=== PATIENT | female | born 2000 | race Caucasian/White ===

== ENCOUNTER 2024-02-01 00:33 | Emergency (ER) | payer OTHER, SELFPAY ==
[2024-02-01 00:38] VITALS: BP 124/90
--- NOTE | 2024-02-01 01:50 | ED.GENMED ---
History of Present Illness
<BRIONNA Coleman - Last Filed: 02/01/24 02:11>
General
Chief Complaint: Abdominal Pain
Source: patient and family
Exam Limitations: none
Time Seen by Provider: 02/01/24 01:42
Nursing documentation reviewed up to this point in time: agreed with
History of Present Illness
History of Present Illness:
Pt is a 23 yo F with PMH of anxiety, hypothyroidism and constipation who presents with abdominal pain x 2 days. She states the pain is mostly in her epigastric region with some lower substernal and LUQ radiation. She notes she has been dealing with
episodes of constipation since November and has been taking miralax and stool softener at the recommendation of her PCP. She states she has not had a bowel movement in a couple of days and feels very bloated. She notes that she forced herself to
vomit in an attempt to get relief without success. The pain that she is experiencing now is constant, worse than it was yesterday and woke her up out of sleep tonight. She is still currently experiencing constant nausea, but has not had any episodes
of involuntary vomiting. Pt states her LMP was 2 weeks ago and was regular. She denies ARMENTA, fever, chest pain, dyspnea, diarrhea, back pain or changes in urination.
Past History
<BRIONNA Coleman - Last Filed: 02/01/24 02:11>
Past History
ED Past Medical History: Hypothyroidism
ED Past Surgical History: None
Review of Systems
<BRIONNA Coleman - Last Filed: 02/01/24 02:11>
Review of Systems
Allergies reviewed?: Yes
Constitutional: Denies fever, weight gain, weight loss, fatigue, night sweats or chills
Respiratory: Denies cough or trouble breathing
Cardiac: Denies chest pain or palpitations
ABD/GI: Reports abdominal pain (epigastric and LUQ), nausea, vomiting (pt forced herself to in an attempt for pain relief) and constipated; Denies diarrhea or bloody stools
: Denies dysuria, flank pain or urgency
Neurological: Denies dizzy or headache
Phy Exam
<BRIONNA Coleman - Last Filed: 02/01/24 02:11>
General Physical Exam
General Presentation: well appearing and no apparent distress
General age: appears stated age
General Skin: warm and dry
General Habitus: normal and obese
General Mental: alert
General Hydration: appears well hydrated
Cardiovascular Exam
Cardiovascular Exam: regular rate/rhythm and no murmur
Pulmonary Exam
Pulmonary Exam: lungs clear and no respiratory distress
Gastrointestinal Exam
Gastrointestinal Exam: soft, no pulsatile mass and abnormal bowel sounds (hypoactive)
Palpation: left upper quadrant: Moderate tenderness (LUQ and epigastric)
Auscultation of Abdomen: hypoactive
Course
<BRIONNA Coleman - Last Filed: 02/01/24 02:11>
Orders/Labs/Results
Orders:
Orders
02/01/24 01:39
IV Insert/Care/Rem.- Treatment PRN
02/01/24 01:41
Test Result ONCE
02/01/24 02:05
Complete Blood Count/With Diff Urgent
Comprehensive Metabolic Panel Urgent
HCG, Serum Qualitative Screen Urgent
Lipase Urgent
02/01/24 02:15
CR Abdomen - 1 View Urgent
Comment:
Reason For Exam: abd pain
02/01/24 02:25
Urinalysis Reflex To Culture Urgent
Date Specimen was Collected: 02/01/24
Time Specimen was Collected: 02:16
Urine Microscopic Reflex Cult Urgent
Urine Culture Urgent
NIRMAL Source: U
Specimen Description:
Date Specimen was Collected: 02/01/24
Time Specimen was Collected: 02:16
02/01/24 03:15
Magnesium Citrate [Citroma] 300 ml PO ONCE ONE
Abnormal Lab Results
02/01/24 02/01/24
02:05 02:25
WBC 11.5 H 10^3/uL
(4.8-10.8)
RBC 4.07 L 10^6/uL
(4.20-5.40)
Hct 35.2 L %
(37.0-47.0)
Absolute Neuts (auto) 8.8 H 10^3/uL
(1.4-6.5)
Neutrophils % 76.4 H %
(42.2-75.2)
Lymphocytes % 17.4 L %
(20.5-51.1)
Urine Ketones 3+ A
(Negative)
Leukocyte Esterase Rfl Trace A
(Negative)
Urine RBC 3-6 A /HPF
(0-2)
Urine Bacteria (Reflex) Moderate A
(Negative)
02/01/24 02:05
02/01/24 02:05
Vital Signs
Initial and Last Documented VS:
Initial Vital Signs
Temp Pulse Resp BP Pulse Ox
98 F 74 18 124/90 100
02/01/24 00:38 02/01/24 00:38 02/01/24 00:38 02/01/24 00:38 02/01/24 00:38
Last Documented Vital Signs
Temp Pulse Resp BP Pulse Ox
98 F 61 18 136/60 98
02/01/24 00:38 02/01/24 02:09 02/01/24 02:09 02/01/24 02:08 02/01/24 02:10
<Juan Jose Linares, DO - Last Filed: 02/01/24 03:33>
Orders/Labs/Results
Orders:
Orders
02/01/24 01:39
IV Insert/Care/Rem.- Treatment PRN
02/01/24 01:41
Test Result ONCE
02/01/24 02:05
Complete Blood Count/With Diff Urgent
Comprehensive Metabolic Panel Urgent
HCG, Serum Qualitative Screen Urgent
Lipase Urgent
02/01/24 02:15
CR Abdomen - 1 View Urgent
Comment:
Reason For Exam: abd pain
02/01/24 02:25
Urinalysis Reflex To Culture Urgent
Date Specimen was Collected: 02/01/24
Time Specimen was Collected: 02:16
Urine Microscopic Reflex Cult Urgent
Urine Culture Urgent
NIRMAL Source: U
Specimen Description:
Date Specimen was Collected: 02/01/24
Time Specimen was Collected: 02:16
02/01/24 03:15
Magnesium Citrate [Citroma] 300 ml PO ONCE ONE
Abnormal Lab Results
02/01/24 02/01/24
02:05 02:25
WBC 11.5 H 10^3/uL
(4.8-10.8)
RBC 4.07 L 10^6/uL
(4.20-5.40)
Hct 35.2 L %
(37.0-47.0)
Absolute Neuts (auto) 8.8 H 10^3/uL
(1.4-6.5)
Neutrophils % 76.4 H %
(42.2-75.2)
Lymphocytes % 17.4 L %
(20.5-51.1)
Urine Ketones 3+ A
(Negative)
Leukocyte Esterase Rfl Trace A
(Negative)
Urine RBC 3-6 A /HPF
(0-2)
Urine Bacteria (Reflex) Moderate A
(Negative)
02/01/24 02:05
02/01/24 02:05
Vital Signs
Initial and Last Documented VS:
Initial Vital Signs
Temp Pulse Resp BP Pulse Ox
98 F 74 18 124/90 100
02/01/24 00:38 02/01/24 00:38 02/01/24 00:38 02/01/24 00:38 02/01/24 00:38
Last Documented Vital Signs
Temp Pulse Resp BP Pulse Ox
98 F 61 18 136/60 98
02/01/24 00:38 02/01/24 02:09 02/01/24 02:09 02/01/24 02:08 02/01/24 02:10
<BRIONNA Coleman - Last Filed: 02/01/24 02:11>
MDM/Problems Addressed
Differential Diagnosis Includes:
constipation, pancreatitis, PUD, cholecystitis, kidney stones
<BRIONNA Coleman - Last Filed: 02/01/24 02:11>
*Critical Care Note
Total Time (30-74mins, 75-104mins- exclusive of procedures): Not Applicable
ED Attending Note
<BRIONNA Coleman - Last Filed: 02/01/24 02:11>
-
Portions of this chart may have been created with voice recognition software.� Occasional wrong word or��sound alike� substitutions may have occurred due to the inherent limitations of voice recognition software.
<Juan Jose Linares DO - Last Filed: 02/01/24 03:33>
ED Attending Note
Patient seen and examined by attending physician: Yes
I performed the substantive portion of visit, reviewed & personally made and approve the management plan that is documented in note by myself or TIFFANY.: Yes
ED Attending Note:
23-year-old female brought in by private vehicle presents with abdominal pain for the last 2 days. She states that the pain is mostly in the upper abdomen. She states that she has had some lower abdominal pain intermittently. She has been
diagnosed with constipation since November. She has been taking MiraLAX and stool softener but has not had much relief. Denies fever or chills. Reports nausea without obvious vomiting. Last medical period was 2 weeks ago. No other complaints at
this time. Patient was seen in conjunction with the PA student. I have reviewed and agree with the history and treatment plan presented. On my independent physical exam, patient is awake, alert, and oriented x3 minimal acute distress. Heart
regular rate and rhythm. Lungs clear to auscultation bilaterally without wheezes rales or rhonchi present. Abdomen is soft slightly gravid. Nondistended. No tenderness to palpation. Moves all 4 extremities.
Abdominal x-ray shows heavy stool pattern.
Plan is MagCit seen in discharge.
Discharge Plan
Departure
Patient Disposition: Home (Routine Discharge)
Date of Disposition: 02/01/24
Time of Disposition: 03:28
Patient with high blood pressure during this ER visit?: Yes
Condition: Good
Discharge Problem:
Abdominal pain, Constipation
Instructions: Abdominal Pain, Constipation, Adult (DC)
Referrals:
Osman Rogers, DO [Family Provider] -
Activity Restrictions/Additional Instructions:
Please take half the bottle of mag citrate provided. Wait 4 to 6 hours for results. If you do not experience a bowel movement, please take the other half of the bottle. After 4 more hours please return to the ER if you have not had results.
It was a pleasure meeting you and taking part in your care. We hope for your continued healing and wellness.
Please read discharge instructions in their entirety. However, they are for general education and may not describe your exact diagnosis at discharge. Information on your ER visit and medical conditions were discussed with you along with appropriate
follow up information...
If indicated, please take your medications as instructed and indicated on discharge paperwork.
Please schedule a follow up appointment as directed. Call to schedule an appointment
Please return to the emergency department with ANY change in, persisting, or worsening of symptoms. If any of your symptoms do not improve, or persist, or become more severe within 6-12 hours, please return to the emergency department for further
care.
Please return to the emergency department if you develop a headache, neck pain/stiffness, fever greater than 100.4F, chest pain, shortness of breath, persistent nausea, vomiting, slurred speech, difficulty walking, numbness/tingling, weakness, signs
of infection or any other symptoms that are worrisome to you.
If you have any questions or concerns please do not hesitate to call the Hospital at or E-mail me directly at [email or web address]
Interventions
Interventions:
*Risk Screen - Suicide Last Done: 02/01/24 00:38
*General Assessment Last Done: 02/01/24 02:10
*Neglect/Abuse Screening Last Done: 02/01/24 00:38
ED- Fall Risk Assessment Last Done: 02/01/24 02:10
*ED COVID-19 Vaccine History Last Done: 02/01/24 02:10
XY-Zspdfm-Zlsrbfwecd Assessment Last Done: 02/01/24 02:10
Discharge Date and Time
Print Language: ZAMBIAN
[2024-02-01 02:08] VITALS: BP 136/60
[2024-02-01 02:39] LABS: Urine Albumin Trace (Neg - Trace); Urine Bilirubin Negative (Negative); Urine Character Clear (Clear); Urine Color Yellow; Urine Glucose Negative (Negative); Urine Ketone 3+ (Negative); Urine Leukocyte Trace (Negative); Urine Nitrite Negative (Negative); Urine Occult Blood Negative (Negative); Urine Urobilinogen Negative (Neg - 1+)
[2024-02-01 02:40] LABS: % Basophils 0.3 % (0-2); % Eosinophils 1.4 % (0-6); % Immature Granulocytes 0.3 % (0-0.5); % Lymphocytes 17.4 % (20.5-51.1); % Monocytes 4.2 % (1.7-9.3); % Neutrophils 76.4 % (42.2-75.2); Absolute Eosinophils 0.2 10^3/uL (0-0.7); Absolute Monocytes 0.5 10^3/uL (0.1-0.6); Absolute Neutrophils 8.8 10^3/uL (1.4-6.5); Hematocrit 35.2 % (37.0-47.0); Mean Corp Hgb Conc. 34.1 g/dL (33.0-37.0); Mean Corpuscular Hgb 29.5 pg (27.0-31.0); Mean Corpuscular Volume 86.5 fL (81.0-99.0); Mean Platelet Volume 9.6 fL (7.4-10.4); Nucleated Red Blood Cells % 0 %; Platelet Count 213 10^3/uL (130-400); Red Blood Cell Count 4.07 10^6/uL (4.20-5.40); Red Cell Dist. Width 12.6 % (11.5-14.5); White Blood Cell Count 11.5 10^3/uL (4.8-10.8)
[2024-02-01 02:49] LABS: Urine Mucus Moderate
[2024-02-01 02:51] LABS: Urine Bacteria Moderate (Negative)
[2024-02-01 02:54] LABS: HCG, Serum Qualitative Screen Negative
[2024-02-01 03:00] VITALS: BP 126/58
[2024-02-01 03:00] LABS: ALT (SGPT) 17 U/L (0-35); AST (SGOT) 19 U/L (14-36); Albumin 4.1 g/dl (3.5-5.0); Alkaline Phosphatase 73 U/L (38-126); Blood Urea Nitrogen 8 mg/dl (7-17); Calcium 8.9 mg/dl (8.4-10.2); Carbon Dioxide 24 mmol/L (22-30); Chloride 107 mmol/L (98-107); Glucose 99 mg/dl (70-99); Lipase 46 U/L (23-300); Sodium 142 mmol/L (135-145); Total Bilirubin 0.2 mg/dl (0.2-1.3); eGFR > 60.00
[2024-02-01 05:01] VITALS: BP 121/59
[2024-02-01] MEDS: CITROMA 300 ML PO (05:02)
== END 2024-02-01 05:00 | disposition home or self-care (01) ==
LOC: EMR 00:33
PROVIDERS: EMERGENCY PHYSICIAN Student in an Organized Health Care Education/Training Program; FAMILY PHYSICIAN Family Medicine
DX: K59.00 Constipation, unspecified (principal); E03.9 Hypothyroidism, unspecified
CPT/HCPCS: 99284; 74018; 80053; 81003; 81015; 83690; 84703; 85025; 87086

== ENCOUNTER → 2024-02-02 09:11 | Outpatient (REF) | payer OTHER, SELFPAY | LOC: HWRAD 09:11 | PROVIDERS: ATTENDING PHYSICIAN Nurse Practitioner Family; FAMILY PHYSICIAN Family Medicine | DX: R10.13 Epigastric pain (principal) | CPT/HCPCS: 76700 ==

== ENCOUNTER 2024-04-10 06:19 | Day surgery (SDC) | payer OTHER, SELFPAY | END 2024-04-10 11:35 | disposition home or self-care (01) | LOC: GI 06:19 | PROVIDERS: ATTENDING PHYSICIAN Internal Medicine Gastroenterology | DX: R10.12 Left upper quadrant pain (principal); K21.00 Gastro-esophageal reflux disease with esophagitis, without bleeding; K31.89 Other diseases of stomach and duodenum | CPT/HCPCS: 43239; 88305 ==

== ENCOUNTER 2024-04-29 06:04 | Emergency (ER) | payer OTHER, SELFPAY ==
[2024-04-29 06:07] VITALS: BP 116/74
--- NOTE | 2024-04-29 07:29 | EDRN ---
Pt appears comfortable, continue to await bed in ED. Pt seen eating bag of pretzels.
--- NOTE | 2024-04-29 07:54 | ED.GENMED ---
History of Present Illness
General
Chief Complaint: Abdominal Pain
Source: patient
Exam Limitations: none
Time Seen by Provider: 04/29/24 07:39
Nursing documentation reviewed up to this point in time: agreed with
History of Present Illness
History of Present Illness:
24-year-old female with past medical history of celiac's disease presents to the emergency department for evaluation of abdominal pains and nausea/vomiting/diarrhea. Patient reports that she was diagnosed with celiac's in been eating
gluten-free diet since. She says that Tuesday afternoon she started having some crampy upper abdominal pain and diarrhea similar to symptoms she was having prior to diagnosis. She attributed this to unintentional ingestion of gluten and symptoms
lasted initially only for a little over 24 hours and Tuesday and early Tuesday she says that her symptoms had essentially resolved. Last night after dinner she says that she started again having symptoms crampy left upper abdominal pain with
associated diarrhea also having nausea and vomiting. Symptoms were more sharp last night and so she decided to come to the emergency room to be evaluated. She denies any fever or chills. She denies any urinary symptoms. No vaginal bleeding. She
denies any other complaints. She denies any prior abdominal surgeries.
Past History
Past History
ED Past Medical History: Hypothyroidism
ED Past Surgical History: None
Review of Systems
Review of Systems
All Other Systems: ROS reviewed and negative except as documented in HPI and ROS
Constitutional: Denies fever or chills
Respiratory: Denies trouble breathing
Cardiac: Denies chest pain
ABD/GI: Reports abdominal pain, nausea, vomiting and diarrhea
: Denies dysuria, flank pain or bleeding
Musculoskeletal: Denies neck pain or back pain
Neurological: Denies dizzy or headache
Phy Exam
Physical Exam
Physical Exam:
General: Awake, alert, oriented x3; no acute distress
Head: Normocephalic, atraumatic
Eyes: Conjunctiva normal, sclera anicteric
Throat: Airway intact, handling secretions
Neck: Trachea midline, supple without meningismus
Lungs: Clear to auscultation bilaterally, no wheezing, rales, rhonchi
Heart: Regular rate and rhythm, no murmurs, gallops, or rubs
Abd: Soft, non distended, minimally tender left upper abdomen
Back: No CVA tenderness
Neuro: No gross deficits
Extremities: Warm and well-perfused
Scores
Heart Failure Risk
Heart Failure Risk Score: Not Applicable
Heart Score for Chest Pain Patients
STEMI patient?: Not applicable
Withdrawal Assessment of Alcohol
Withdrawal Assessment Completed?: Not applicable
Course
Orders/Labs/Results
Orders:
Orders
04/29/24 07:17
Test Result ONCE
04/29/24 07:54
0.9% Sodium Chloride 1000 ml [Nss] 1,000 ml IV BOLUS
Mag Hydrox/Al Hydrox/Simeth [Maalox] 30 ml Phenobarb/Hyoscy/Atropine/Scop [] 10 ml Viscous Lidocaine 2% [Xylocaine Viscous Cup] 10 ml PO NOW
Ondansetron Injectable [Zofran] 4 mg IV NOW STA
04/29/24 08:02
Complete Blood Count/With Diff Urgent
Comprehensive Metabolic Panel Urgent
HCG, Serum Qualitative Screen Urgent
Lipase Urgent
04/29/24 08:10
Mag Hydrox/Al Hydrox/Simeth [Maalox] 30 ml .ROUTE .STK-MED ONE
Phenobarb/Hyoscy/Atropine/Scop [] 10 ml .ROUTE .STK-MED ONE
Viscous Lidocaine 2% [Xylocaine Viscous Cup] 15 ml .ROUTE .STK-MED ONE
04/29/24 09:16
Morphine Sulfate 4 mg IV NOW STA
04/29/24 09:17
Morphine Sulfate 4 mg .ROUTE .STK-MED ONE
Abnormal Lab Results
04/29/24
08:02
RBC 4.17 L 10^6/uL
(4.20-5.40)
Hct 36.3 L %
(37.0-47.0)
Absolute Neuts (auto) 6.7 H 10^3/uL
(1.4-6.5)
Absolute Lymphs (auto) 1.1 L 10^3/uL
(1.2-3.4)
Neutrophils % 81.4 H %
(42.2-75.2)
Lymphocytes % 13.0 L %
(20.5-51.1)
Creatinine 0.5 L mg/dL
(0.6-1.0)
Glucose 101 H mg/dl
(70-99)
AST 38 H U/L
(14-36)
ALT 52 H U/L
(0-35)
04/29/24 08:02
04/29/24 08:02
Vital Signs
Initial and Last Documented VS:
Initial Vital Signs
Temp Pulse Resp BP Pulse Ox
36.9 C 76 20 116/74 100
04/29/24 06:07 04/29/24 06:07 04/29/24 06:07 04/29/24 06:07 04/29/24 06:07
Last Documented Vital Signs
Temp Pulse Resp BP Pulse Ox
36.9 C 85 18 122/78 99
04/29/24 10:05 04/29/24 10:05 04/29/24 10:05 04/29/24 10:05 04/29/24 10:05
MDM/Problems Addressed
Differential Diagnosis Includes:
Gastroenteritis, pancreatitis, much less likely cholelithiasis based on location of pain
MDM/Problems Addressed:
24-year-old female presents for evaluation of left upper quadrant abdominal pain associate with nausea/vomiting/diarrhea�had transient symptoms Tuesday and had return of symptoms last night. She has been dealing with recent diagnosis of celiac
since that she has had similar symptoms when she ingests gluten in the past. Vitals and exam as above. Will plan to check labs including a CBC and a CMP, lipase, hCG. Will provide fluids, antiemetic. Trial GI cocktail. Clinical suspicion is for
gastroenteritis versus food sensitivity/celiac's. Considered CT abdomen but with benign abdominal exam and taking full clinical picture no account in my judgment very low clinical suspicion for surgical pathology and will hold off on CT at this
point.
Labs reviewed: CBC shows no leukocytosis or other clinically significant abnormality; CMP showed marginally elevated AST and ALT but normal T. bili and normal lipase�suspect this may be related to the viral infection and gastroenteritis; not
consistent with obstructive pattern/choledocholithiasis. Electrolytes within acceptable range. Her hCG is negative. Patient pain-free after ER treatment. Vitals have been stable. Plan to discharge on PPI, sulcal freight, Zofran as needed.
Follow-up with her primary doctor that she actually has an appointment scheduled for Tuesday. We did speak in detail about bland diet, staying on top of her fluids, and strict return precautions. All questions answered.
Chronic conditions affecting care:
Celiac's disease
*Pulse Oximetry
Patient hypoxic: no
*Critical Care Note
Total Time (30-74mins, 75-104mins- exclusive of procedures): Not Applicable
Data Reviewed
Source: patient
Further Testing Considered But Not Given:
Considered CT of the abdomen pelvis
ED Attending Note
-
Portions of this chart may have been created with voice recognition software.� Occasional wrong word or��sound alike� substitutions may have occurred due to the inherent limitations of voice recognition software.
Discharge Plan
Departure
Patient Disposition: Home (Routine Discharge)
Date of Disposition: 04/29/24
Time of Disposition: 10:17
Patient with high blood pressure during this ER visit?: No
Discharge Problem:
Abdominal pain, Nausea vomiting and diarrhea
Instructions: Nausea and Vomiting, Adult (DC), [place] diet, Abdominal Pain
Prescriptions:
New
pantoprazole [Protonix] 40 mg tablet,delayed release (DR/EC)
40 mg PO DAILY Qty: 14 0RF
sucralfate [Carafate] 100 mg/mL suspension
10 ml PO ACHS Qty: 414 0RF
ondansetron 4 mg tablet,disintegrating
4 mg PO TIDPRN PRN (Reason: nausea/vomiting) Qty: 14 0RF
Referrals:
Marcela [facility] [employer] [Family Provider] - Follow up in 5-7 days
Activity Restrictions/Additional Instructions:
Thank you for visiting the Emergency Department at [facility].
1. Please schedule a follow up appointment as directed. Call first thing tomorrow morning to make an appointment.
2. If indicated, please take your medications as instructed and indicated on discharge paperwork.
3. If any of your symptoms do not improve, or persist, or become more severe within 6-12 hours, please return to the emergency department for further care.
4. Please return to the emergency department if you develop a headache, neck pain/stiffness, fever greater than 100.4F, chest pain, shortness of breath, persistent nausea, vomiting, slurred speech, difficulty walking, numbness/tingling, weakness,
signs of infection or any other symptoms that are worrisome to you.
Please call [phone] if you have any questions.
Interventions
Interventions:
*Risk Screen - Suicide Last Done: 04/29/24 06:07
*General Assessment Last Done: 04/29/24 08:31
*Neglect/Abuse Screening Last Done: 04/29/24 06:07
NH-Nqgicy-Mfijyqityi Assessment Last Done: 04/29/24 08:31
Discharge Date and Time
Print Language: CAMEROONIAN
[2024-04-29 08:02] VITALS: BMI 37.7
[2024-04-29] MEDS: NSS 1000 IV (08:09)
[2024-04-29] MEDS: MAALOX 50 PO (08:10)
[2024-04-29] MEDS: ZOFRAN 4 MG IV (08:10)
[2024-04-29 08:19] LABS: % Basophils 0.2 % (0-2); % Eosinophils 0.2 % (0-6); % Immature Granulocytes 0.4 % (0-0.5); % Monocytes 4.8 % (1.7-9.3); % Neutrophils 81.4 % (42.2-75.2); Absolute Lymphocytes 1.1 10^3/uL (1.2-3.4); Absolute Monocytes 0.4 10^3/uL (0.1-0.6); Absolute Neutrophils 6.7 10^3/uL (1.4-6.5); Hematocrit 36.3 % (37.0-47.0); Hemoglobin 12.3 g/dL (12.0-16.0); Mean Corp Hgb Conc. 33.9 g/dL (33.0-37.0); Mean Corpuscular Hgb 29.5 pg (27.0-31.0); Mean Corpuscular Volume 87.1 fL (81.0-99.0); Mean Platelet Volume 9.1 fL (7.4-10.4); Nucleated Red Blood Cells % 0 %; Platelet Count 192 10^3/uL (130-400); Red Blood Cell Count 4.17 10^6/uL (4.20-5.40); Red Cell Dist. Width 12.3 % (11.5-14.5); White Blood Cell Count 8.3 10^3/uL (4.8-10.8)
[2024-04-29 08:32] LABS: HCG, Serum Qualitative Screen Negative
[2024-04-29 08:35] LABS: ALT (SGPT) 52 U/L (0-35); AST (SGOT) 38 U/L (14-36); Alkaline Phosphatase 88 U/L (38-126); Blood Urea Nitrogen 7 mg/dl (7-17); Calcium 9.1 mg/dl (8.4-10.2); Carbon Dioxide 27 mmol/L (22-30); Chloride 104 mmol/L (98-107); Estimated Creatinine Clearance > 125 ml/min; Glucose 101 mg/dl (70-99); Lipase 51 U/L (23-300); Sodium 140 mmol/L (135-145); Total Bilirubin 0.3 mg/dl (0.2-1.3); eGFR > 60.00
[2024-04-29] MEDS: MORPHINE SULFATE 4 MG IV (09:19)
[2024-04-29 10:05] VITALS: BP 122/78
== END 2024-04-29 10:25 | disposition home or self-care (01) ==
LOC: EMR 06:04
PROVIDERS: EMERGENCY PHYSICIAN Emergency Medicine; FAMILY PHYSICIAN Nurse Practitioner Family
DX: R11.2 Nausea with vomiting, unspecified (principal); R19.7 Diarrhea, unspecified; R10.12 Left upper quadrant pain; K90.0 Celiac disease; E03.9 Hypothyroidism, unspecified; Z86.16 Personal history of COVID-19; Z87.820 Personal history of traumatic brain injury; Z91.018 Allergy to other foods
CPT/HCPCS: 99284; 96374; 96375; 96361; 80053; 83690; 84703; 85025

== ENCOUNTER → 2024-06-13 07:51 | Outpatient (REF) | payer OTHER, SELFPAY | LOC: RAD 07:51 | PROVIDERS: ATTENDING PHYSICIAN Nurse Practitioner Family | DX: K82.8 Other specified diseases of gallbladder (principal) | CPT/HCPCS: 78226; A9537 ==